=== PATIENT | female | born 1990 | race African-American/Black ===

== ENCOUNTER 2022-05-05 18:44 | Emergency (ER) | payer MEDICAID, OTHER | END 2022-05-05 19:36 | disposition home or self-care (01) | LOC: MADERS 18:44 | DX: U07.1 COVID-19 (principal) | CPT/HCPCS: 99283; U0003; U0005 ==

== ENCOUNTER 2022-12-12 14:10 | Emergency (ER) | payer OTHER | END 2022-12-12 14:57 | disposition home or self-care (01) | LOC: MADERS 14:10 | DX: J32.8 Other chronic sinusitis (principal); B97.89 Other viral agents as the cause of diseases classified elsewhere; J06.9 Acute upper respiratory infection, unspecified | CPT/HCPCS: 99283 ==

== ENCOUNTER 2024-03-21 21:15 | Emergency (ER) | payer OTHER ==
[2024-03-21] MEDS ORDERED: Lidocaine 1% w/Epinephrine 1:100K 20 ML VIAL ONE (21:36)
[2024-03-21] MEDS ORDERED: Boostrix 0.5 ML (Tdap) VIAL (>/=7 yrs of age) ONE (21:37)
== END 2024-03-21 22:07 | disposition home or self-care (01) ==
LOC: MADERS 21:15
DX: L72.3 Sebaceous cyst (principal); Z23 Encounter for immunization
CPT/HCPCS: 10060; 87070; 87205; 90471; 90715